=== PATIENT | female | born 1990 | race Caucasian/White ===

== ENCOUNTER 2017-06-04 19:12 | Emergency (ER) | payer BC, OTHER ==
[2017-06-05 07:46] LABS: NEGATIVE OBC STREP NEG; POSITIVE OBC STREP POS
== END 2017-06-04 21:21 | disposition home or self-care (01) ==
LOC: ER 19:12
DX: J02.0 Streptococcal pharyngitis (principal); J45.909 Unspecified asthma, uncomplicated
CPT/HCPCS: 87880; 99283

== ENCOUNTER 2017-09-28 07:46 | Emergency (ER) | payer BC | END 2017-09-28 08:20 | disposition home or self-care (01) | LOC: ER 07:46 | DX: J45.909 Unspecified asthma, uncomplicated (principal); J06.9 Acute upper respiratory infection, unspecified; F41.9 Anxiety disorder, unspecified; Z90.89 Acquired absence of other organs; Z88.8 Allergy status to other drugs, medicaments and biological substances | CPT/HCPCS: 99281 ==

== ENCOUNTER → 2021-07-10 | Emergency (ER) | payer BC ==
[~2021-07-10] VITALS: Ht 180.3 cm; Wt 109.6 kg
[~2021-07-10] MED LIST: ACET325T9 PO; AMOX875T PO; BACI28.34 TP; IBUP-1027 PO
[2021-07-10 22:09] VITALS: BP 131/96
[2021-07-10] MEDS: BACITRACIN TOPICAL OINT PACKET. TP ONE (23:00)
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
== END | disposition home or self-care (01) ==
LOC: ER 22:00
DX: T22.211A Burn of second degree of right forearm, initial encounter (principal); J45.909 Unspecified asthma, uncomplicated; F90.9 Attention-deficit hyperactivity disorder, unspecified type; Z88.8 Allergy status to other drugs, medicaments and biological substances; X08.8XXA Exposure to other specified smoke, fire and flames, initial encounter; Y93.89 Activity, other specified; Y92.89 Other specified places as the place of occurrence of the external cause; Y99.8 Other external cause status
CPT/HCPCS: 16020; 99282